=== PATIENT | male | born 1980 | race Caucasian/White ===

== ENCOUNTER 2019-07-22 00:27 | Inpatient (IN) ==
[2019-07-22 01:28] LABS: Basophils # 0.1 K/mcL (0.0-0.2); Basophils % 0.6 %; Eosinophils % 0.2 %; Hematocrit 37.1 % (37.5-50.1); Hemoglobin 12.6 g/dL (12.9-16.9); Immature Granulocytes % 0.3 % (0-4); Lymphocytes # 1.2 K/mcL (0.6-4.6); Lymphocytes % 12.2 %; Mean Corpuscular Hemoglobin 31.9 pg (28.0-33.3); Mean Corpuscular Volume 93.9 fL (83.0-100.0); Mean Platelet Volume 9.8 fL (9.4-12.4); Monocytes # 0.6 K/mcL (0.0-1.3); Monocytes % 5.9 %; Platelet Count 370 K/mcL (140-400); Red Blood Count 3.95 M/mcL (4.19-5.50); Red Cell Distribution Width 13.8 % (11.5-14.5); Segmented Neutrophils % 80.8 %; White Blood Count 9.9 K/mcL (4.3-11.1)
[2019-07-22] MEDS ORDERED: *HR* LORazepam 2 MG/ML VIAL IVP ONE (01:35)
[2019-07-22 01:48] LABS: Acetaminophen < 10 mcg/mL (10-20); BUN/Creatinine Ratio 13 (6-26); Blood Urea Nitrogen 9 mg/dL (6-20); Calcium 9.7 mg/dL (8.6-10.3); Carbon Dioxide 26 mEq/L (23-29); Chloride 100 mEq/L (98-107); Ethanol < 10 mg/dL (Less than 10); Glucose 116 mg/dL (70-105); Osmolality,Calculated 284 (280-300); Salicylate < 2.5 mg/dL (15.0-30.0); Sodium 137 mEq/L (136-145); eGFR For African Americans > 60 (> 60); eGFR For Non-African Americans > 60 (> 60)
[2019-07-22 02:29] LABS: Bilirubin,Urine Negative (Negative); Blood,Urine Small (Negative); Clarity,Urine Clear (Clear); Color,Urine Yellow (Yellow); Glucose,Urine (UA) Normal (Normal); Ketones,Urine Negative (Negative); Leukocyte Esterase,Urine Negative (Negative); Nitrite,Urine Negative (Negative); Protein,Urine Negative (Neg-Trace); Specific Gravity,Urine 1.006 (1.010-1.025); Urobilinogen,Urine Normal (Normal)
[2019-07-22 02:32] LABS: Bacteria,Urine None Seen per hpf (None-Few); Hyaline Casts,Urine None Seen per lpf (None-Few); RBC,Urine 0-3 per hpf (0-3); Squamous Epithelial Cell,Urine None Seen per lpf (None-Few); WBC,Urine 0-3 per hpf (0-3)
[2019-07-22 02:43] LABS: Amphetamine Screen,Urine Positive ng/mL (Cutoff=1000); Barbiturate Screen,Urine Negative ng/mL (Cutoff=200); Benzodiazepines Screen,Urine Negative ng/mL (Cutoff=200); Cannabinoid Screen,Urine Positive ng/mL (Cutoff = 50); Cocaine Screen,Urine Negative ng/mL (Cutoff= 300); Opiate Screen,Urine Negative ng/mL (Cutoff=300); Phencyclidine Screen,Urine Negative ng/mL (Cutoff=25)
[2019-07-22] MEDS ORDERED: *HR* LORazepam 2 MG/ML VIAL IM ONE (03:39)
[2019-07-22] MEDS ORDERED: Haloperidol Lactate 5 MG/ML VIAL IM ONE (03:39)
[2019-07-22] MEDS ORDERED: Mag Hydrox/Al Hydrox/Simeth 30 ML UDC PO PRN (14:05)
[2019-07-22] MEDS ORDERED: *HR* LORazepam 2 MG/ML VIAL IM PRN (14:05)
[2019-07-22] MEDS ORDERED: hydrOXYzine pamoate 25 MG CAPSULE PO PRN (14:05)
[2019-07-22] MEDS ORDERED: Acetaminophen 325 MG TABLET PO PRN (14:05)
[2019-07-22] MEDS ORDERED: *HR* LORazepam 1 MG TABLET PO PRN (14:05)
[2019-07-22] MEDS ORDERED: MOM Conc 10 ML UD.LIQ PO PRN (14:05)
[2019-07-22] MEDS ORDERED: Haloperidol Lactate 5 MG/ML VIAL IM PRN (14:05)
[2019-07-22] MEDS ORDERED: traZODone 50 MG TABLET PO PRN (14:05)
[2019-07-23] MEDS ORDERED: Naloxone 0.4 MG/ML INJ IVP PRN (00:34)
[2019-07-23 01:58] LABS: Hematocrit 37.2 % (37.5-50.1); Hemoglobin 12.7 g/dL (12.9-16.9); Mean Corpuscular HGB Conc 34.1 g/dL (31.6-35.5); Mean Corpuscular Hemoglobin 32.2 pg (28.0-33.3); Mean Corpuscular Volume 94.2 fL (83.0-100.0); Mean Platelet Volume 9.7 fL (9.4-12.4); Platelet Count 354 K/mcL (140-400); Red Blood Count 3.95 M/mcL (4.19-5.50); Red Cell Distribution Width 14.1 % (11.5-14.5); White Blood Count 7.7 K/mcL (4.3-11.1)
[2019-07-23 02:17] LABS: BUN/Creatinine Ratio 14 (6-26); Blood Urea Nitrogen 10 mg/dL (6-20); Calcium 8.9 mg/dL (8.6-10.3); Carbon Dioxide 26 mEq/L (23-29); Chloride 104 mEq/L (98-107); Glucose 82 mg/dL (70-105); Osmolality,Calculated 284 (280-300); Potassium 3.7 mEq/L (3.5-5.1); Sodium 138 mEq/L (136-145); eGFR For African Americans > 60 (> 60); eGFR For Non-African Americans > 60 (> 60)
[2019-07-23] MEDS: Nicotine 21 MG PATCH.TD24 TD SCH ×2 (08:08→09:43)
[2019-07-23] MEDS ORDERED: hydrOXYzine pamoate 25 MG CAPSULE PO PRN (17:05)
[2019-07-23] MEDS ORDERED: Nitroglycerin 0.4 MG TAB.SUBL SL PRN (17:06)
[2019-07-23] MEDS ORDERED: Acetaminophen 325 MG TABLET PO PRN (17:17)
[2019-07-24] MEDS: Nicotine 21 MG PATCH.TD24 TD SCH (08:29)
[2019-07-24] MEDS: *HR* LORazepam 1 MG TABLET PO PRN (09:53)
[2019-07-24] MEDS ORDERED: GI Cocktail 40 ML EACH PO ONE (16:50)
[2019-07-25] MEDS ORDERED: Melatonin 3 MG TABLET PO PRN (02:48)
[2019-07-25 06:14] LABS: Hematocrit 41.1 % (37.5-50.1); Hemoglobin 13.8 g/dL (12.9-16.9); Mean Corpuscular HGB Conc 33.6 g/dL (31.6-35.5); Mean Corpuscular Hemoglobin 31.9 pg (28.0-33.3); Mean Corpuscular Volume 95.1 fL (83.0-100.0); Mean Platelet Volume 9.5 fL (9.4-12.4); Platelet Count 365 K/mcL (140-400); Red Blood Count 4.32 M/mcL (4.19-5.50); Red Cell Distribution Width 13.9 % (11.5-14.5); White Blood Count 8.1 K/mcL (4.3-11.1)
[2019-07-25 06:37] LABS: BUN/Creatinine Ratio 23 (6-26); Blood Urea Nitrogen 20 mg/dL (6-20); Calcium 9.5 mg/dL (8.6-10.3); Carbon Dioxide 28 mEq/L (23-29); Chloride 99 mEq/L (98-107); Glucose 106 mg/dL (70-105); Osmolality,Calculated 287 (280-300); Potassium 4.2 mEq/L (3.5-5.1); Sodium 137 mEq/L (136-145); eGFR For African Americans > 60 (> 60); eGFR For Non-African Americans > 60 (> 60)
[2019-07-25 07:10] VITALS: BP 103/71
[2019-07-25] MEDS: Nicotine 21 MG PATCH.TD24 TD SCH (08:03)
[2019-07-25] MEDS: *HR* LORazepam 1 MG TABLET PO PRN (08:08)
== END 2019-07-25 11:33 | DRG 751 ==
LOC: EMEROOARM 00:27 → 1ANU 14:03 → OBSVTOIN 21:03 → INTOOBSV 21:03 → 3BNU 21:03
PROVIDERS: ADMIT Internal Medicine; ATTEND Internal Medicine

== ENCOUNTER 2019-07-25 11:30 | Observation (INO) ==
[2019-07-25] MEDS ORDERED: Haloperidol Lactate 5 MG/ML VIAL IM PRN (11:38)
[2019-07-25] MEDS ORDERED: Mag Hydrox/Al Hydrox/Simeth 30 ML UDC PO PRN (11:38)
[2019-07-25] MEDS ORDERED: *HR* LORazepam 2 MG/ML VIAL IM PRN (11:38)
[2019-07-25] MEDS ORDERED: *HR* LORazepam 1 MG TABLET PO PRN (11:38)
[2019-07-25] MEDS ORDERED: MOM Conc 10 ML UD.LIQ PO PRN (11:38)
[2019-07-25] MEDS ORDERED: Nicotine 2 MG GUM BC PRN (11:46)
[2019-07-26] MEDS: Nicotine 21 MG PATCH.TD24 TD SCH (09:49)
[2019-07-26] MEDS: hydrOXYzine pamoate 25 MG CAPSULE PO PRN (19:18)
[2019-07-26] MEDS: traZODone 50 MG TABLET PO PRN (21:40)
[2019-07-27] MEDS: Nicotine 21 MG PATCH.TD24 TD SCH (10:19)
[2019-07-27] MEDS: hydrOXYzine pamoate 25 MG CAPSULE PO PRN (12:45)
[2019-07-28] MEDS: hydrOXYzine pamoate 25 MG CAPSULE PO PRN ×2 (06:11→20:28)
[2019-07-28] MEDS: traZODone 50 MG TABLET PO PRN (20:28)
[2019-07-28] MEDS: Acetaminophen 325 MG TABLET PO PRN (20:28)
[2019-07-28] MEDS: Nicotine 21 MG PATCH.TD24 TD SCH (21:11)
[2019-07-29] MEDS: Nicotine 21 MG PATCH.TD24 TD SCH (09:10)
[2019-07-29] MEDS: traZODone 50 MG TABLET PO PRN (21:01)
[2019-07-29] MEDS: hydrOXYzine pamoate 25 MG CAPSULE PO PRN (21:01)
[2019-07-29] MEDS: Acetaminophen 325 MG TABLET PO PRN (21:01)
[2019-07-29 23:05] VITALS: BP 147/78
[2019-07-30] MEDS: Acetaminophen 325 MG TABLET PO PRN (06:54)
== END 2019-07-30 08:00 | disposition home or self-care (01) ==
LOC: INTOOBSV 11:30 → 1ANU 11:30 → SUATTDRO 11:30
PROVIDERS: ADMIT Psychiatry & Neurology Psychiatry; ATTEND Psychiatry & Neurology Psychiatry